=== PATIENT | male | born 1945 | race Caucasian/White ===

== ENCOUNTER 2017-03-09 16:55 | Emergency (ER) | payer OTHER, MEDICARE ==
[~2017-03-09 16:55] MED LIST: ASPIRIN EC325 MG PO; LISINOPRIL10 MG PO; LOPRESSOR 25MG25 MG PO; METFORMIN HCL500 MG PO; NITROSTAT0.4 MG SL; PROTONIX 40MG T40 MG PO; SIMVASTATIN40 MG PO; TRADJENTA5 MG PO
[2017-03-09 17:18] LABS: ABSOLUTE BASOPHIL COUNT 0 /CUMM (0.0-0.2); ABSOLUTE EOSINOPHIL COUNT 0 /CUMM (0.0-0.7); ABSOLUTE GRANULOCYTE CT 9.2 /CUMM (1.4-6.5); ABSOLUTE LYMPH COUNT 1.4 /CUMM (1.2-3.4); ABSOLUTE MONOCYTE COUNT 0.5 /CUMM (0.10-0.60); BASOPHIL % 0.4 % (0.0-2.0); EOSINOPHIL % 0.2 % (0-5); MEAN CORPUSCULAR HGB 28.8 PG (27.0-31.0); MEAN CORPUSCULAR HGB CONC 32.7 G/DL (33.0-37.0); MEAN CORPUSCULAR VOLUME 88.2 FL (80.0-94.0); MEAN PLATELET VOLUME 7.6 FL (7.4-10.4); PLATELET COUNT 232 /CUMM (130-400); WHITE BLOOD CELL COUNT 11.2 /CUMM (4.8-10.8)
--- NOTE | 2017-03-09 18:34 | ED GI/GU/ABDOMINAL COMPLAINT ---
History of Present Illness General Chief Complaint: Abdominal Pain/Flank Pain Stated Complaint: ABD PAIN/CHEST PAIN Source: patient Exam Limitations: no limitations Allergies Coded Allergies: NO KNOWN ALLERGIES (05/16/12) Reconcile Medications Aspirin E.c. (Ecotrin) 325 MG TAB 1 TAB PO DAILY HEART HEALTH (Reported) Linagliptin (Tradjenta) 5 MG TAB 1 TAB PO DAILY DIABETES (Reported) Lisinopril 10 MG TAB 2 TAB PO DAILY BLOOD PRESSURE (Reported) Metformin Hydrochloride (Metformin HCl) 500 MG TAB 1 TAB PO BID DIABETES ( Reported) Metoprolol Tartrate (Lopressor) 25 MG TAB 1 TAB PO BID BLOOD PRESSURE ( Reported) Nitroglycerin (Nitrostat) 0.4 MG TAB 1 TAB SL PRN PRN HEART HEALTH (Reported) Pantoprazole Sodium (Protonix) 40 MG TAB 1 TAB PO DAILY GI (Reported) Simvastatin 40 MG TAB 1 TAB PO DAILY HEART HEALTH (Reported) Triage Note: PER PT CHEST AND ABD PAIN X 6 HRS WHILE AT WORK, HX OF SAME NO SOB NO DIAPHORESIS Triage Nurses Notes Reviewed? yes Onset: Abrupt Duration: hour(s): (6), better, continues in ED Timing: recent history Quality/Severity: sharpness Severity Numbers: 6 Location: epigastric, right upper quadrant Radiation: no radiation Activities at Onset: none Prior Abdominal Problems: similar symptoms (GALLSTONES) Past Sexual History: Unobtainable at this time No Modifying Factors: none Modifying Factors: Worsens With: movement, palpation. Associated Symptoms: abdominal pain, chest pain HPI: 71-year-old male past medical history of biliary colic, coronary artery disease, hypertension presents for evaluation of epigastric pain and pain in his right upper quadrant. The pain started about 6 hours ago and has been slightly improving. The pain is described as sharp and does not radiate. There are no alleviating or aggravating factors. Patient states that he has had similar symptoms on multiple times associated with gallstones. Patient states that he saw Dr. Aviles back in November and was most of a cholecystectomy but patient canceled due to his schedule. Patient states that back then the symptoms would occur several times a month however the frequency has increased to almost every day now. Patient rates the pain as a 6 or 7 out of 10. He is not taking any medicine for it. No nausea vomiting or diarrhea. No shortness of breath hemoptysis lower extremity edema recent surgery recent trauma. (Micheal Cordova) Vital Signs & Intake/Output Vital Signs & Intake/Output Vital Signs Date Time Temp Pulse Resp B/P B/P Pulse O2 O2 Flow FiO2 Mean Ox Delivery Rate 03/098 97.7 57 18 143/75 95 Room Air 03/09 1912 98.1 62 18 184/80 98 Room Air 03/09 1703 67 20 174/89 97 ED Intake and Output 03/10 0000 03/09 1200 Intake Total 0 Output Total Balance 0 Intake, Oral 0 Patient 196 lb Weight (Ira BARAKAT,[place] Pro) Past History Travel History Traveled to [place] past 21 day No Medical History Any Pertinent Medical History? see below for history Neurological: NONE EENT: NONE Cardiovascular: angina, CAD, hypertension Respiratory: NONE Gastrointestinal: NONE Hepatic: NONE Renal: NONE Musculoskeletal: NONE Psychiatric: NONE Endocrine: diabetes Blood Disorders: NONE Cancer(s): NONE DATA WAREHOUSE MANAGER/Reproductive: NONE History of MRSA: No History of VRE: No History of CDIFF: No Influenza Vaccine: 11/15/14 Surgical History Surgical History: PTCA Psychosocial History Who do you live with Daughter Services at Home None What is your primary language German Tobacco Use: Never used Family History Family History, If Any: BROTHER FH: hyperlipidemia FH: myocardial infarction FHx: coronary artery bypass surgery Hx Contributory? No (Micheal Cordova) Review of Systems Review of Systems Constitutional: Reports: no symptoms. EENTM: Reports: no symptoms. Respiratory: Reports: no symptoms. Cardiovascular: Reports: see HPI, chest pain. GI: Reports: see HPI, abdominal pain. Genitourinary: Reports: no symptoms. Musculoskeletal: Reports: no symptoms. Skin: Reports: no symptoms. Neurological/Psychological: Reports: no symptoms. Hematologic/Endocrine: Reports: no symptoms. Immunologic/Allergic: Reports: no symptoms. All Other Systems: Reviewed and Negative (Micheal Cordova) Physical Exam Physical Exam General Appearance: well developed/nourished, no apparent distress, alert, awake Head: atraumatic, normal appearance Eyes: Bilateral: normal appearance, PERRL, EOMI. Ears, Nose, Throat, Mouth: hearing grossly normal, moist mucous membrane Neck: normal inspection, supple, full range of motion, NO jvd Respiratory: normal breath sounds, no respiratory distress, quiet respiration, CHEST WALL TENDERNESS PALPATION OVER THE ANTERIOR STERNUM AND EPIGASTRIC AREA Cardiovascular: regular rate/rhythm, normal peripheral pulses Peripheral Pulses: 2+ radial (R), 2+ radial (L) Gastrointestinal: normal bowel sounds, soft, no organomegaly, tenderness ( EPIGASTRIC RIGHT UPPER QUADRAN) Back: normal inspection, normal range of motion, no vertebral tenderness Extremities: normal range of motion Neurologic/Psych: no motor/sensory deficits, awake, alert, oriented x 3, normal gait Skin: intact, normal color, warm/dry Core Measures ACS in differential dx? Yes No ASA d/t RULED OUT Sepsis Present: No Sepsis Focused Exam Completed? No (Kenn HILL,Micheal) Progress Differential Diagnosis: AAA, AMI, appendicitis, biliary colic, bowel obstruction , cholecystitis, diverticulitis, gastritis, pancreatitis, peptic ulcer, PUD/GERD , SBO, UTI/pyelo, UNSTABLE ANGINA, pe, PNEUMONIA Diagnostic Imaging: Viewed by Me: CT Scan. Discussed w/RAD: CT Scan. Radiology Impression: PATIENT: SURINDER BARR PRESENT AGE: 71 PATIENT ACCOUNT NO: [id number] : 46 LOCATION: [facility] ORDERING PHYSICIAN: Micheal HILL SERVICE DATE: 03/09/17 EXAM TYPE: CAT - CT ABD & PELVIS W IV CONTRAST; CT CHEST W IV CONTRAST EXAMINATION: CT CHEST, ABDOMEN AND PELVIS WITH CONTRAST CLINICAL INFORMATION: Chest pain, shortness of breath, epigastric pain. COMPARISON: None. TECHNIQUE: Contiguous axial thin section helical images of the chest, abdomen and pelvis were performed following the administration of oral contrast and 95 mL of intravenous Optiray 320. The data set was reformatted in the coronal and sagittal planes and reviewed on an independent workstation. DLP: 553 mGy-cm. FINDINGS: The heart is of normal size. There is no pericardial effusion. There is neither mediastinal, hilar nor axillary lymphadenopathy. There are no chest wall masses. Review of lung windows demonstrates that there are neither pleural effusions nor pneumothoraces. There are no consolidations. There are no pulmonary parenchymal nodules. The liver is of normal size and diffuse decreased attenuation without focal lesions nor intrahepatic biliary ductal dilation. There is a calculus within the gallbladder lumen. There is no wall thickening or discernible pericholecystic fluid. The spleen, pancreas, adrenal glands are unremarkable. Both kidneys are of normal size and attenuation without hydronephrosis or nephrolithiasis. Following the administration of IV contrast, prompt symmetric nephrograms are displayed. There is no abdominal free fluid. There is neither mesenteric nor retroperitoneal lymphadenopathy. Normal opacified loops of small and large bowel are identified. A normal appendix is identified. There is no pelvic free fluid. The urinary bladder is unremarkable. There is neither pelvic nor inguinal lymphadenopathy. Bone windows: Neither sclerotic nor lytic bone lesions are identified. IMPRESSION: No evidence for acute thoracic, abdominal nor pelvic inflammatory or infectious processes. Cholelithiasis without evidence of cholecystitis. DICTATED BY: Moises Loomis MD DATE/TIME DICTATED:03/09/172044 QUALITY ASSURANCE TECH: ISAAC DATE/TIME TRANSCRIBED:03/09/172044 CONFIDENTIAL, DO NOT COPY WITHOUT APPROPRIATE AUTHORIZATION. <Electronically signed in Other Vendor System> SIGNED BY: Moises Loomis MD 03/09/172053 Initial ED EKG: normal sinus rhythm, FIRST-DEGREE av BLOCK, LEFT BUNDLE BRANCH BLOCK (Kenn HILL,Micheal) Plan of Care: Orders Procedure Date/time Status TROPONIN LEVEL 03/09 2144 Complete EKG 03/09 2144 Active Add-on Test (ER Only) 03/09 184 Active URINALYSIS 03/09 1840 Complete D-DIMER 03/09 1710 Complete TROPONIN LEVEL 03/09 1705 Complete LIPASE 03/09 1705 Complete COMPREHENSIVE METABOLIC PANEL 03/09 1705 Complete CBC WITHOUT DIFFERENTIAL 03/09 170 Complete AMYLASE 03/09 170 Complete EKG 03/09 1701 Active Laboratory Tests 03/09/17 2135: Troponin I < 0.01 03/09/17 1900: Urinalysis LIGHT H, Urine Color YEL, Urine Clarity CLEAR, Urine pH 6.0, Ur Specific [place] 1.025, Urine Protein TRACE H, Urine Ketones NEG, Urine Nitrite NEG, Urine Bilirubin NEG, Urine Urobilinogen 0.2, Ur Leukocyte Esterase NEG, Ur Microscopic SEDIMENT EXAMINED, Urine RBC 3-5, Urine WBC 1-3 H, Ur Epithelial Cells RARE, Urine Bacteria FEW H, Urine Mucus RARE, Urine Hemoglobin SMALL H, Urine Glucose NEG 03/09/17 1711: Anion Gap 14, Estimated GFR > 60, BUN/Creatinine Ratio 36.7 H, Glucose 140 H, Calcium 9.5, Total Bilirubin 0.2, AST 30, ALT 49, Alkaline Phosphatase 134 H, Troponin I < 0.01, Total Protein 7.2, Albumin 4.3, Globulin 2.9, Albumin/ Globulin Ratio 1.5, Amylase 81, Lipase 130, CBC w Diff NO MAN DIFF REQ, RBC 5.10 , MCV 88.2, MCH 28.8, RDW 13.0, MPV 7.6, Gran % 82.0 H, Lymphocytes % 12.5 L, Monocytes % 4.9, Eosinophils % 0.2, Basophils % 0.4, Absolute Granulocytes 9.2 H, Absolute Lymphocytes 1.4, Absolute Monocytes 0.5, Absolute Eosinophils 0, Absolute Basophils 0, PUBS MCHC 32.7 L 03/09/17 1710: D-Dimer High Sensitivty < 200 Patient seen and evaluated. He has history of biliary colic and similar symptoms. His pulse have a cholecystectomy but canceled it due to his schedule. Patient states that he has been having symptoms more frequently now almost every day. This is the same things been dealing with for several months. CT scan does not show evidence of acute cholecystitis. Blood work shows a white blood cell count of 11 and a very mildly elevated alkaline phosphatase. LFTs otherwise within normal limits no gallbladder wall thickening or pericholecystic fluid. Patient was medicated with oral Tylenol here and is feeling much better. Repeat exam of the abdomen shows significant decreased tenderness in the right upper quadrant epigastric area. A repeat EKG and troponin are negative and unchanged. D-dimer is negative. CT the chest is within normal limits. Spoke with Dr. Singh from general surgery. He recommends that the patient follow up with Dr. Aviles as soon as possible. Patient was instructed to rest avoid greasy fatty foods drink plenty of fluids continue Tylenol as needed. Call Dr. Aviles tomorrow. Discussed return precautions including signs of acute cholecystitis. Patient is nontoxic-appearing and agrees the plan. Case discussed with Dr. Roth he agrees. (Kenn HILL,Micheal) (Ira BARAKAT,[place] Pro) Departure Departure Disposition: HOME OR SELF CARE Condition: Stable Clinical Impression Primary Impression: Biliary colic Referrals: Britney BARAKAT,Jennifer Pro (PCP/Family) Stefan BARAKAT,Biju Lutz Additional Instructions: REST And drink plenty of fluids. Avoid greasy fatty foods. Tylenol 1000 mg every 6 hours as needed for pain. Follow-up with Dr. Aviles tomorrow. Monitor symptoms and return with any concerns. Departure Forms: Customer Survey General Discharge Information (Micheal Cordova) PA/INSULATION SUPERVISOR Co-Sign Statement Statement: ED Attending supervision documentation- [x] I saw and evaluated the patient. I have also reviewed all the pertinent lab results and diagnostic results. I agree with the findings and the plan of care as documented in the PA's/INSULATION SUPERVISOR's documentation. Patient presents for evaluation of burning epigastric abdominal pain that he has been suffering for months. Patient states that he was evaluated by Dr. Aviles and it was felt he needed to have his gallbladder removed. This was to occur in November of last year with the patient went on vacation and has yet to follow-up since. He states his abdominal pain episodes are now a daily occurrence particularly after eating. Physical examination reveals mild tenderness over the epigastric region but no rebound or guarding (patient states he is having no pain currently). [] I have reviewed the ED Record and agree with the PA's/INSULATION SUPERVISOR's documentation. [] Additions or exceptions (if any) to the PAs/INSULATION SUPERVISOR's note and plan are summarized below: [] (Ira BARAKAT,[place] Pro)
--- NOTE | 2017-03-09 20:54 | CT SCAN REPORT ---
EXAMINATION: CT CHEST, ABDOMEN AND PELVIS WITH CONTRAST CLINICAL INFORMATION: Chest pain, shortness of breath, epigastric pain. COMPARISON: None. TECHNIQUE: Contiguous axial thin section helical images of the chest, abdomen and pelvis were performed following the administration of oral contrast and 95 mL of intravenous Optiray 320. The data set was reformatted in the coronal and sagittal planes and reviewed on an independent workstation. DLP: 553 mGy-cm. FINDINGS: The heart is of normal size. There is no pericardial effusion. There is neither mediastinal, hilar nor axillary lymphadenopathy. There are no chest wall masses. Review of lung windows demonstrates that there are neither pleural effusions nor pneumothoraces. There are no consolidations. There are no pulmonary parenchymal nodules. The liver is of normal size and diffuse decreased attenuation without focal lesions nor intrahepatic biliary ductal dilation. There is a calculus within the gallbladder lumen. There is no wall thickening or discernible pericholecystic fluid. The spleen, pancreas, adrenal glands are unremarkable. Both kidneys are of normal size and attenuation without hydronephrosis or nephrolithiasis. Following the administration of IV contrast, prompt symmetric nephrograms are displayed. There is no abdominal free fluid. There is neither mesenteric nor retroperitoneal lymphadenopathy. Normal opacified loops of small and large bowel are identified. A normal appendix is identified. There is no pelvic free fluid. The urinary bladder is unremarkable. There is neither pelvic nor inguinal lymphadenopathy. Bone windows: Neither sclerotic nor lytic bone lesions are identified. IMPRESSION: No evidence for acute thoracic, abdominal nor pelvic inflammatory or infectious processes. Cholelithiasis without evidence of cholecystitis.
[2017-03-09 22:08] VITALS: BP 143/75
[2017-03-13] MEDS ORDERED: GABAPENTIN300 M2 PO (15:57)
[2017-03-13] MEDS ORDERED: METFORMIN HCL500 M3 PO (15:57)
[2017-03-13] MEDS ORDERED: TRADJENTA5 M1 PO (15:57)
[2017-03-13] MEDS ORDERED: ASPIRIN325 M2 PO (16:00)
== END 2017-03-09 22:46 ==
LOC: ERH 16:55
PROVIDERS: Emergency Medicine
DX: K80.50 Calculus of bile duct without cholangitis or cholecystitis without obstruction (principal)
CPT/HCPCS: 74177; 81001; 93005; 93010

== ENCOUNTER → 2017-03-17 | Day surgery (SDC) | payer OTHER, MEDICARE ==
[~2017-03-17] VITALS: Ht 170.2 cm; Wt 91.2 kg
[~2017-03-17] MED LIST changes: +ASPIRIN325 M2 PO; +GABAPENTIN300 M2 PO; +METFORMIN HCL500 M3 PO; +TRADJENTA5 M1 PO
--- NOTE | 2017-03-17 08:57 | Operative Report ---
Operative/Inv Procedure Report Surgery Date: 03/17/17 Name of Procedure: Laparoscopic cholecystectomy Pre-Operative Diagnosis: Biliary colic Post-Operative Diagnosis: Same Estimated Blood Loss: scant Surgeon/Shop Blacksmith: Stefan BARAKAT,Biju Lutz/Emily HILL Anesthesia: general endotracheal tube Drains: None Specimens: Gallbladder Operative/Procedure Note Note: After informed consent patient is brought to the operating room and laid supine. General anesthesia was obtained and the abdomen was prepped and draped. The skin above the umbilicus infiltrated with local anesthesia and a curvilinear incision made sharply. We came down through the subcutaneous tissues bluntly and grasped the fascia with Mattie's. A fasciotomy was created sharply and stay sutures placed. The peritoneum was entered sharply and a blunt Andrews port was placed. Pneumoperitoneum was achieved. 3, 5 mm ports were placed in the epigastrium and right upper quadrant after local anesthesia was instilled and under direct vision the camera. he's placed in reverse Trendelenburg and rotated towards the left. The gallbladder was difficult to visualize due to adhesions of omentum to the entire liver edge. These adhesions were taken down with blunt and cautery dissection. The gallbladder is identified. It was grasped at the dome and retracted towards the head. Infundibulum was then grasped. Adhesions to the undersurface were taken down with blunt and cautery dissection. We dissected both sides the triangle [place] peritoneal tissue with cautery. The artery was medial and its normal anatomic position. It was cauterized medially to allow it to be mobilized away from the duct. [place] was cleared of areolar tissue with cautery. The arteries and duct were doubly ligated with clips. Gallbladder is removed from the fossa electrocautery. It was placed in Endo Catch bag and cinched up. Right upper quadrant was and suction irrigated normal saline. Hemostasis achieved with cautery. The ports were then removed and the gallbladder delivered and passed off the field. The fascia was closed with 0 Vicryl suture. Skin incisions closed with 4-0 Vicryl. Steri-Strips and sterile dressing applied. Sponge and needle counts are correct. Findings: Chronic cholecystitis CC: Britney BARAKAT,Jennifer Pro
== END ==
LOC: STS 06:26
DX: K80.10 Calculus of gallbladder with chronic cholecystitis without obstruction (principal); E11.9 Type 2 diabetes mellitus without complications; Z79.84 Long term (current) use of oral hypoglycemic drugs; I10 Essential (primary) hypertension; I25.10 Atherosclerotic heart disease of native coronary artery without angina pectoris; Z98.61 Coronary angioplasty status; K21.9 Gastro-esophageal reflux disease without esophagitis; E66.9 Obesity, unspecified; Z68.31 Body mass index [BMI] 31.0-31.9, adult
CPT/HCPCS: 88304; C9399; J0131; J0690; J1100; J1885; J2250; J2405